=== PATIENT | female | born 1995 ===

== ENCOUNTER 2016-11-14 17:55 | Emergency (ER) | payer SELFPAY ==
[2016-11-14 17:42] LABS: URINE BILIRUBIN NEGATIVE (NEG); URINE BLOOD NEGATIVE (NEG); URINE GLUCOSE (UA) NEGATIVE (NEG); URINE KETONE NEGATIVE (NEG); URINE LEUKOCYTE ESTERASE NEGATIVE (NEG); URINE NITRITE NEGATIVE (NEG); URINE PROTEIN NEGATIVE (NEG)
[2016-11-14 17:44] LABS: URINE APPEARANCE CLOUDY; URINE COLOR YELLOW
[2016-11-14 17:51] LABS: URINE AMORPHOUS 3+; URINE BACTERIA 1+; URINE RBC 0 /[HPF] (0-5); URINE WBC 0-3 /[HPF] (0-5)
[~2016-11-14 17:55] MED LIST: BACTRIM DS TAB1 EAC2 PO; PYRIDIUM200 M2 PO
== END 2016-11-14 18:16 ==
LOC: EDMED 17:55
PROVIDERS: Physician Assistant
DX: R30.0 Dysuria (principal)